=== PATIENT | male | born 2000 | race Caucasian/White ===

== ENCOUNTER 2024-12-20 21:20 | Emergency (ER) | payer OTHER, SELFPAY ==
[2024-12-20 21:28] VITALS: BP 112/68; PULSE 91; RESP 18; TEMP 38.8; O2SAT 99; BMI 28.0
--- NOTE | 2024-12-20 21:47 | EKG_ITS ---
[facility] [address], [place] [address] Test Date: 2024-12-20 Pat Name: Alli Valencia Department: 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
--- NOTE | 2024-12-20 21:48 | EKG_ITS ---
Located [facility] [address], [place] [address] Test Date: 2024-12-20 Pat Name: Alli Valencia Department: Loc[facility] Room: Gender: Male Taker Out: REGINALDO : 2000 Requested By: Order Number: [id number] Reading MD: Measurements Intervals [place] Rate: 99 P: 63 [place]: 144 QRS: 79 QRSD: 98 T: 30 QT: 330 QTc: 423 Interpretive Statements Normal sinus rhythm
[2024-12-20 22:00] LABS: Add Manual Diff / Slide Review NO; Basophils Absolute Auto 0 /uL (0-100); Basophils Percent Auto 0.2 % (0-2); Eosinophils Absolute Auto 100 /uL (0-450); Eosinophils Percent Auto 0.6 % (2-4); Hematocrit 47.6 % (41-53); Lymphocytes Absolute Auto 800 /uL (1100-4500); Lymphocytes Percent Auto 9.9 % (25-40); Mean Corpuscular HGB Conc 33.5 % (30-36); Mean Corpuscular Hemoglobin 30.7 PG (26-34); Mean Corpuscular Volume 91.6 fL (80-100); Monocytes Absolute Auto 500 /uL (0-900); Monocytes Percent Auto 6.3 % (3-14); Neutrophils Absolute Auto 6800 /uL (1500-7000); Platelet Count 173 X10^3/uL (150-400); White Blood Cell Count 8.2 X10^3/uL (4.5-11.0)
[2024-12-20 22:09] LABS: Alanine Aminotransferase 20 IU/L (<50); Albumin 4.7 g/dL (3.5-5.0); Albumin Globulin Ratio 1.6 (1.0-2.8); Alkaline Phosphatase 39 U/L (38-126); Aspartate Aminotransferase 25 IU/L (17-59); BUN Creatinine Ratio 9.9 (6-22); Bilirubin Total 1.3 mg/dL (0.2-1.3); Blood Urea Nitrogen 12 mg/dL (9-20); Calcium 9.2 mg/dL (8.4-10.2); Carbon Dioxide 28 mmol/L (22-32); Chloride 102 mmol/L (98-107); Estimated Glomerular Filt Rate > 60 mL/min (>60); Glucose 109 mg/dL (70-100); HEMOLYSIS < 15 (0-50); Lipase 53 U/L (23-300); Potassium 3.7 mmol/L (3.4-5.1); Sodium 136 mmol/L (137-145); Total Protein 7.7 g/dL (6.3-8.2)
--- NOTE | 2024-12-21 02:19 | ED.ABDPAIN ---
HPI - Abdominal Pain General Chief Complaint: Abdominal Pain Stated Complaint: right side abd px, mild fever, needs K checked Time Seen by Provider: 12/21/24 02:19 Source: patient Mode of arrival: Ambulatory History of Present Illness HPI narrative: 24-year-old male no significant past medical history comes into the ED from home for evaluation of right-sided abdominal pain associated nausea vomiting fever for the past 24 hours, describes it as an ache nothing making it better or worse, patient denies any nausea vomiting diarrhea no known sick contacts no history of surgeries to the abdomen. States that the pain is both upper and lower on the right side but worse to the right upper quadrant. No trauma or falls not on any blood thinners. Did Not take any medications for his symptoms. Patient also states that about a week ago he had elevated potassium and would like that checked here today. Related Data Previous Rx's Medication Instructions Recorded azithromycin 500 mg tablet 500 mg PO DAILY 5 days #5 tabs 12/21/24 Allergies Allergy/AdvReac Type Severity Reaction Status Date / Time amoxicillin AdvReac Verified 12/20/24 21:27 omalizumab [From Xolair] AdvReac Verified 12/20/24 21:28 [email or web address] AdvReac Verified 12/20/24 21:27 [From Tezspire] Review of Systems Review of Systems Narrative: General: Positive fever, chills, denies weight loss HEENT: Denies headache, eye drainage, eye irritation, head trauma, sore throat, voice change Cardiovascular: Denies any chest pain, palpitations, shortness of breath, tachycardia Respiratory: Denies any shortness of breath, cough, wheeze, stridor GI/: D positive right-sided abdominal pain, denies nausea, vomiting, diarrhea, bright red blood per rectum, melanotic stools, urinary frequency, urinary retention, dysuria, hematuria MSK: Denies any joint pain, muscle pains, swelling Skin: Denies any rashes, lesions, discoloration Neuro: Denies any headache, lightheadedness, dizziness, fainting, weakness Psych: Denies SI/HI Patient History Social History Smoking Status: Never smoker Smoking Status: Never smoker Exam Narrative Exam Narrative: General: Cooperative, comfortable, well-developed, not in acute distress HEENT: Normocephalic, atraumatic, PERRLA, normal sclera, eyelids normal, Neck: Active full range of motion, atraumatic Chest: Normal to inspection, negative crepitus, no overlying erythema ecchymosis Respiratory: Normal respiratory effort, not in acute respiratory distress, clear to auscultation bilaterally negative cough, wheeze, tachypnea, rhonchi, rales Cardiology: Regular rate rhythm negative gallop, murmur, rubs GI/: Normal to inspection, soft, nonrigid, no tenderness to palpation, exam deferred MSK: Full range of active range of motion of all 4 extremities, atraumatic Skin: No rashes lesions noted Neuro: Alert awake oriented x3, moves all 4 extremities spontaneously, cranial nerves intact, able to answer all questions appropriately follows commands appropriately Psych: Cooperative, negative suicidal or homicidal ideations Initial Vital Signs Initial Vital Signs: Vital Signs Temperature 102 F H 12/20/24 21:28 Pulse Rate 91 H 12/20/24 21:28 Respiratory Rate 18 12/20/24 21:28 Blood Pressure 112/68 12/20/24 21:28 Pulse Oximetry 99 12/20/24 21:28 Oxygen Delivery Method Room Air 12/20/24 21:28 Course Orders Ordered: ED Orders 12/20/24 21:34 EKG-12 Lead Stat 12/20/24 21:48 EKG-12 Lead Routine 12/20/24 21:50 Complete Blood Count AUTO DIFF Stat Comprehensive Metabolic Panel Stat Lipase Stat 12/21/24 02:36 CT abdomen pelvis w con Stat 12/21/24 03:00 Covid-19 + FLU A/B + RSV - PCR Stat 12/21/24 03:11 EKG-12 Lead Routine Ondansetron HCl (Ondansetron 4 Mg/2 Ml Inj) 4 mg IV NOW PRN PRN Reason: Nausea And Vomiting Ondansetron HCl (Ondansetron 4 Mg Odt) 4 mg PO NOW PRN PRN Reason: Nausea And Vomiting Discontinued Medications Azithromycin (Azithromycin 250 Mg Tablet) 500 mg PO NOW ONE Stop: 12/21/24 04:32 Sodium Chloride (Normal Saline 0.9%) 1,000 mls @ 1,000 mls/hr IV BOLUS ONE Stop: 12/21/24 03:36 Last Admin: 12/21/24 03:29 Dose: 1,000 mls/hr Documented By: ALL Ketorolac Tromethamine (Ketorolac 30 Mg/Ml Vial) 15 mg IV NOW ONE Stop: 12/21/24 02:37 Last Admin: 12/21/24 03:30 Dose: 15 mg Documented By: ALL Vital Signs Vital signs: Vital Signs - 8 hr 12/20/24 21:28 Temperature 102 F H Pulse Rate 91 H Respiratory Rate 18 Blood Pressure 112/68 Pulse Oximetry 99 Oxygen Delivery Method Room Air MDM - Abdominal Pain Differential Diagnosis Differential diagnosis: Likely abdominal pain, acute appendicitis and other (COVID, flu, electrolyte abnormality, urinary tract infection) Lab Data 12/20/24 21:50 12/20/24 21:50 Labs: Lab Results 12/20/24 12/21/24 Range/Units 21:50 03:00 WBC 8.2 (4.5-11.0) X10^3/uL RBC 5.20 (4.5-5.9) X10^6/uL Hgb 16.0 (13.5-17.5) g/dL Hct 47.6 (41-53) % MCV 91.6 (80-100) fL MCH 30.7 (26-34) PG MCHC 33.5 (30-36) % RDW 14.0 (11.6-14.8) % Plt Count 173 (150-400) X10^3/uL Neut % (Auto) 83.0 H (50-75) % Lymph % (Auto) 9.9 L (25-40) % [place] % (Auto) 6.3 (3-14) % Eos % (Auto) 0.6 L (2-4) % Baso % (Auto) 0.2 (0-2) % Neut # (Auto) 6800 (4574-7794) /uL Lymph # (Auto) 800 L (5724-0770) /uL [place] # (Auto) 500 (0-900) /uL Eos # (Auto) 100 (0-450) /uL Baso # (Auto) 0 (0-100) /uL Sodium 136 L (137-145) mmol/L Potassium 3.7 (3.4-5.1) mmol/L Chloride 102 (98-107) mmol/L Carbon Dioxide 28 (22-32) mmol/L BUN 12 (9-20) mg/dL Creatinine 1.21 (0.66-1.25) mg/dL Estimated GFR > 60 (>60) mL/min BUN/Creatinine Ratio 9.9 (6-22) Glucose 109 H (70-100) mg/dL Calcium 9.2 (8.4-10.2) mg/dL Total Bilirubin 1.3 (0.2-1.3) mg/dL AST 25 (17-59) IU/L ALT 20 (<50) IU/L Alkaline Phosphatase 39 (38-126) U/L Total Protein 7.7 (6.3-8.2) g/dL Albumin 4.7 (3.5-5.0) g/dL Globulin 3.0 (1.7-4.1) g/dL Albumin/Globulin Ratio 1.6 (1.0-2.8) Lipase 53 (23-300) U/L SARS-CoV-2 (PCR) Negative (Negative) Influenza A (RT-PCR) Flu a negative (NEGATIVE) Influenza B (RT-PCR) Flu b negative (NEGATIVE) RSV (PCR) Negative (Negative) Imaging Data CT scan - abdomen/pelvis: Radiologist's Impression: Preliminary read showing moderate stool throughout the colon, infectious or inflammatory enteritis noted however no findings of obstruction or any other acute findings. Liver and gallbladder unremarkable ECG Data Interpretation: EKG interpreted ED physician sinus 99 beats per minute QTC 423, normal axis, nonspecific ST changes, no STEMI MDM Narrative Medical decision making narrative: 24-year-old male no significant past medical history comes in the ED for evaluation of fever, chills, right-sided abdominal pain upper worse than lower, ongoing for the past few hours. Nothing making it better or worse. Patient without any leukocytosis, CT scan showing infectious or inflammatory enteritis but no other acute findings, liver spleen pancreas gallbladder unremarkable. Patient defervesced here after administration medication, given the fact that at this time unknown source of fever in the setting of CT scan showing colitis will prescribe patient short course of antibiotics instructed to follow up with PCP in and out patient's setting, strict return precautions given he verbalized understanding of this and agrees to being discharged home with outpatient follow up Discharge Plan Departure Patient Disposition: Home Clinical Impression: Colitis Instructions: DI for Colitis Activity Restrictions/Additional Instructions: Please read the discharge instructions sheet carefully and bring all papers to all doctor follow-up visits, as it may contain information that your doctor may want to see. Disease processes change and evolve, if your symptoms worsen or if you develop any new symptoms that are concerning to you please return for evaluation. Your evaluation today does not show any evidence of any life-threatening/serious illnesses requiring admission to the hospital or surgery. Please follow-up with your doctor for re-evaluation in approximately 1 day. Seek immediate medical attention for any worrisome symptoms. *If you do not have a primary care provider please contact the [facility] Resource line at [phone]. They will ask some questions about your medical history and help get you set up with a doctor in the community. Prescriptions: New azithromycin 500 mg tablet 500 mg PO DAILY 5 Days Qty: 5 0RF Stand Alone Forms: Patient Portal/API/Survey
--- NOTE | 2024-12-21 02:36 | DI.CT.S_ITS ---
PROCEDURE: CT ABDOMEN PELVIS W CON INDICATIONS: right sided abd pain TECHNIQUE: After the administration of intravenous contrast, axial sections acquired from the lung bases to the pubic symphysis. Coronal and sagittal reformats were performed. For radiation dose reduction, the following was used: automated exposure control, adjustment of mA and/or kV according to patient size. COMPARISON: None. FINDINGS: Image quality: Diagnostic. Lower Chest: No significant findings. ABDOMEN: Liver: No solid mass. Gallbladder: No radiopaque gallstones or wall thickening. Biliary ducts: No biliary dilation. Pancreas: No ductal dilation. Spleen: Size is within normal limits. Adrenal Glands: No adrenal nodules. Kidneys and Ureters: No hydronephrosis. No solid mass. No complex renal cystic lesion which requires follow up. Stomach and Bowel: Mild, diffuse wall thickening of the small bowel. No obstruction. Normal appendix. No diverticulosis. Peritoneum: No abnormal intraperitoneal fluid. No free air. Ventral Wall: No significant ventral hernia. Abdominal Nodes: No retroperitoneal or mesenteric adenopathy by size criteria. Vessels: Aorta and inferior vena cava are normal in size. PELVIS: Pelvic Organs: Unremarkable. Bladder: No bladder wall thickening, accounting for underdistention. Pelvic Nodes: No enlarged lymph nodes. Miscellaneous: No inguinal hernias are seen. Bones: No aggressive osseous abnormality. IMPRESSION: Enteritis, without obstruction. Agree with preliminary report. Dictated by: Antony Isaac M.D. on 12/21/2024 at 8:03 Approved by: Antony Isaac M.D. on 12/21/2024 at 8:07
--- NOTE | 2024-12-21 03:11 | EKG_ITS ---
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
[2024-12-21] MEDS: SODIUM CHLORIDE 0.9% 1,000 ML 1000 ML IV (03:29)
[2024-12-21] MEDS: KETOROLAC 30 MG/ML VIAL 15 MG IV (03:30)
[2024-12-21 03:44] LABS: Influenza A - CEPHEID Flu A NEGATIVE (NEGATIVE); Influenza B - CEPHEID Flu B NEGATIVE (NEGATIVE); Respiratory Syncytial Virus Negative (Negative)
[2024-12-21 03:55] LABS: COVID-19 CEPHEID 4-PLEX PCR Negative (Negative)
[2024-12-21] MEDS: AZITHROMYCIN 250 MG TABLET 500 MG PO (04:40)
[2024-12-21 04:47] VITALS: BP 112/57; PULSE 93; RESP 17; O2SAT 98
== END 2024-12-21 04:49 | disposition home or self-care (01) ==
PROVIDERS: Emergency Provider Student in an Organized Health Care Education/Training Program
DX: K52.9 Noninfective gastroenteritis and colitis, unspecified (principal); R50.9 Fever, unspecified
CPT/HCPCS: 0241U; 36415; 74177; 80053; 83690; 85025; 93005; 96361; 96374; 99284; J1885; Q9967